=== PATIENT | female | born 1970 | race Caucasian/White ===

== ENCOUNTER 2019-12-01 08:13 | Outpatient (CLI) | payer OTHER, SELFPAY ==
--- NOTE | ~2019-12-01 | MM_ITS ---
EXAMINATION: MM screening rasta BI w ben HISTORY: Screening TECHNIQUE: Craniocaudal and mediolateral oblique 3-D tomosynthesis images were obtained and synthetic 2-D images were generated. CAD analysis was submitted and interpreted. COMPARISON: Comparison to multiple prior studies sequentially, with oldest reviewed study dated 09/2013. BREAST PARENCHYMAL COMPOSITION: There are scattered areas of fibroglandular density. FINDINGS: There is no evidence of suspicious mass, calcification, or architectural distortion to sugg est malignancy in either breast. There has been no suspicious interval change. IMPRESSION: 1. No mammographic evidence of malignancy. 2. Recommend routine screening mammography in one year. BI-RADS Category 1: Negative Reviewed, dictated and finalized at location A.
== END 2019-12-01 08:14 | disposition home or self-care (01) ==
LOC: ANHIMG 08:15
PROVIDERS: PCP Family Medicine; Visit Provider Family Medicine
DX: Z12.31 Encounter for screening mammogram for malignant neoplasm of breast (principal)
CPT/HCPCS: 77063; 77067

== ENCOUNTER 2020-10-07 09:17 | Outpatient (CLI) | payer OTHER, SELFPAY ==
--- NOTE | 2020-10-07 09:33 | EST_ITS ---
Patient Info Name: Alondra Harris Age: 50 years : 1970 Gender: Female Ht: 64 in Wt: 190 lbs BSA: 2.01 m2 Exam Date: 10/07/2020 10:13 AM Exam Location: [facility] Stress Patient Status: Outpatient Admit Date: 10/07/2020 Staff Ordering Physician: Mariella Dumont MD Attending Provider: GERARDO CAO DO Exercise Technologist: Tawnya Garcia RDCS Exercise Physician: Gerardo Cao DO Exam Type: CA stress test treadmill Study Info Indications I10 - Essential (primary) hypertension Z82.49 - Family history of ischemic heart disease and other diseases of the circulatory system A treadmill exercise stress test was performed. Summary 1. 1. Negative Azeem exercise stress test for ischemic ST changes by ECG criteria. 2. 2. Good functional capacity, achieving 10 METs of workload. 3. 3. Appropriate HR response to exercise. 4. 4. Appropriate HR recovery at 1 minute post exercise. 5. 5. No imaging with stress testing. 6. 6. Patient informed of the above results. Protocol: Azeem Stress ECG Details Stage: REST Duration (min): 1 min : 3 sec Speed (mph): 0.0 Grade (%): 0 HR (bpm): 83 SBP (mmHg): 129 DBP (mmHg): 80 METS: --- Stage: REST Duration (min): 7 min : 12 sec Speed (mph): 0.0 Grade (%): 0 HR (bpm): 82 SBP (mmHg): 129 DBP (mmHg): 80 METS: --- Stage: STAGE 1 Duration (min): 1 min : 0 sec Speed (mph): 1.7 Grade (%): 10 HR (bpm): 108 SBP (mmHg): 129 DBP (mmHg): 80 METS: --- Stage: STAGE 1 Duration (min): 2 min : 0 sec Speed (mph): 1.7 Grade (%): 10 HR (bpm): 116 SBP (mmHg): 129 DBP (mmHg): 80 METS: --- Stage: STAGE 1 Duration (min): 3 min : 0 sec Speed (mph): 1.7 Grade (%): 10 HR (bpm): 122 SBP (mmHg): 173 DBP (mmHg): 98 METS: --- Stage: STAGE 2 Duration (min): 1 min : 0 sec Speed (mph): 2.5 Grade (%): 12 HR (bpm): 127 SBP (mmHg): 173 DBP (mmHg): 98 METS: --- Stage: STAGE 2 Duration (min): 2 min : 0 sec Speed (mph): 2.5 Grade (%): 12 HR (bpm): 133 SBP (mmHg): 172 DBP (mmHg): 96 METS: --- Stage: STAGE 2 Duration (min): 3 min : 0 sec Speed (mph): 2.5 Grade (%): 12 HR (bpm): 133 SBP (mmHg): 172 DBP (mmHg): 96 METS: --- Stage: STAGE 3 Duration (min): 1 min : 0 sec Speed (mph): 3.4 Grade (%): 14 HR (bpm): 145 SBP (mmHg): 180 DBP (mmHg): 98 METS: --- Stage: STAGE 3 Duration (min): 2 min : 0 sec Speed (mph): 3.4 Grade (%): 14 HR (bpm): 154 SBP (mmHg): 180 DBP (mmHg): 98 METS: --- Stage: STAGE 3 Duration (min): 2 min : 0 sec Speed (mph): 3.4 Grade (%): 14 HR (bpm): 154 SBP (mmHg): 180 DBP (mmHg): 98 METS: --- Stage: RECOVERY Duration (min): 0 min : 59 sec Speed (mph): 0.0 Grade (%): 0 HR (bpm): 130 SBP (mmHg): 191 DBP (mmHg): 83 METS: ---
== END 2020-10-07 09:18 | disposition home or self-care (01) ==
LOC: ANHCARD 09:18
PROVIDERS: PCP Family Medicine; Visit Provider Family Medicine
DX: E66.9 Obesity, unspecified (principal); I10 Essential (primary) hypertension; N97.9 Female infertility, unspecified; R73.03 Prediabetes; Z82.49 Family history of ischemic heart disease and other diseases of the circulatory system
CPT/HCPCS: 93017

== ENCOUNTER 2021-01-15 10:20 | Outpatient (CLI) | payer OTHER, SELFPAY ==
--- NOTE | ~2021-01-15 | MM_ITS ---
EXAMINATION: MM screening rasta BI w ben HISTORY: Screening mammogram, family history of breast cancer in her mother. TECHNIQUE: Craniocaudal and mediolateral oblique 3-D tomosynthesis images were obtained and synthetic 2-D images were generated. CAD analysis was submitted and interpreted. COMPARISON: 12/01/2019, 11/15/2018, 09/20/2017 BREAST PARENCHYMAL COMPOSITION: There are scattered areas of fibroglandular density. FINDINGS: There is no evidence of suspicious mass, calcification, or architectural distortion to sugg est malignancy in either breast. There has been no suspicious interval change. IMPRESSION: 1. No mammographic evidence of malignancy. 2. Recommend routine screening mammography in one year. BI-RADS Category 1: Negative Reviewed, dictated and finalized at location A. UCT TRAINER
== END 2021-01-15 10:21 | disposition home or self-care (01) ==
LOC: ANHIMG 10:22
PROVIDERS: PCP Family Medicine; Visit Provider Family Medicine
DX: Z12.31 Encounter for screening mammogram for malignant neoplasm of breast (principal)
CPT/HCPCS: 77063; 77067

== ENCOUNTER 2021-10-30 13:58 | Outpatient (CLI) | payer OTHER, SELFPAY ==
--- NOTE | ~2021-10-30 | XR_ITS ---
EXAMINATION:XR cervical spine 4-5V DATE: 10/30/2021 14:20 INDICATION: Cervicalgia TECHNIQUE: AP, lateral, lateral swimmers and odontoid views of the cervical spine are provided. COMPARISON: None FINDINGS: There are 2 mm of retrolisthesis of C5 on C6. There is reversal of the normal cervical lord osis. The odontoid is intact. No fracture is identified. The vertebral body heights are maintained. T here is severe loss of intervertebral disc space height at C5-6 and C6-7. Degenerative osteophytes pr oject from the anterior endplates at these levels there is moderate facet and uncovertebral joint ost eoarthritis at C5-6 and C6-7. Prevertebral soft tissues are normal. IMPRESSION: 1. Severe cervical spondylosis at C5-6 and C6-7. Reviewed, dictated and finalized at location B.
--- NOTE | ~2021-10-30 | US_ITS ---
EXAMINATION: US soft tissue head and neck DATE: 10/30/2021 15:10 INDICATION: Localized swelling, mass or lump at the left lower neck/supraclavicular region. TECHNIQUE: Multiple grayscale and Doppler ultrasound images of the region of concern at the left lowe r neck/supraclavicular region were obtained. COMPARISON: None FINDINGS: There are couple normal-sized hypoechoic lymph nodes with central echogenic hilum at the region of co ncern. These measure 12 x 5 x 9 mm and 9 x 4 x 7 mm . No other abnormal masses or fluid collections i dentified. IMPRESSION: 1. A couple normal-sized subcutaneous lymph nodes at the region of concern. No other abnormal masses or fluid collections identified. Reviewed, dictated and finalized at location A.
== END 2021-10-30 13:59 | disposition home or self-care (01) ==
PROVIDERS: PCP Family Medicine; Visit Provider Physician Assistant
DX: M54.2 Cervicalgia (principal); M47.812 Spondylosis without myelopathy or radiculopathy, cervical region; M79.89 Other specified soft tissue disorders
CPT/HCPCS: 72050; 76536

== ENCOUNTER 2022-02-27 14:12 | Outpatient (CLI) | payer OTHER, SELFPAY ==
--- NOTE | ~2022-02-27 | MM_ITS ---
EXAMINATION: MM screening rasta BI w ben HISTORY: Screening mammogram, family history of breast cancer in her mother. TECHNIQUE: Craniocaudal and mediolateral oblique 3-D tomosynthesis images were obtained and synthetic 2-D images were generated. CAD analysis was submitted and interpreted. COMPARISON: 01/15/2021, 12/21/2019, 11/15/2018 BREAST PARENCHYMAL COMPOSITION: There are scattered areas of fibroglandular density. FINDINGS: No suspicious mass, calcification, or architectural distortion are identified in either larry ast to suggest malignancy. There has been no suspicious interval change. IMPRESSION: 1. No mammographic evidence of malignancy. 2. Recommend routine screening mammography in one year. BI-RADS Category 1: Negative Reviewed, dictated and finalized at location A. ENT SUCCESS ADVISOR
== END 2022-02-27 14:13 | disposition home or self-care (01) ==
LOC: ANHIMG 14:15
PROVIDERS: PCP Family Medicine; Visit Provider Family Medicine
DX: Z12.31 Encounter for screening mammogram for malignant neoplasm of breast (principal)
CPT/HCPCS: 77063; 77067

== ENCOUNTER 2022-03-02 09:06 | Outpatient (CLI) | payer OTHER, SELFPAY ==
[2022-03-02 09:52] LABS: Kit Draw Collected
== END 2022-03-02 09:07 | disposition home or self-care (01) ==
LOC: ANHGOSHLAB 09:08
PROVIDERS: PCP Family Medicine; Visit Provider Family Medicine
DX: Z00.00 Encounter for general adult medical examination without abnormal findings (principal); R73.03 Prediabetes; Z11.59 Encounter for screening for other viral diseases
CPT/HCPCS: 36415

== ENCOUNTER 2022-03-06 10:15 | Outpatient (CLI) | payer OTHER, SELFPAY ==
[2022-03-06 18:11] LABS: HIV 1/2 Ab P24 Ag Result Negative (Negative)
[2022-03-06 18:40] LABS: Hepatitis C Virus Antibody Negative (Negative)
[2022-03-06 18:43] LABS: Hepatitis B Surface Anti Res Indeterminate
== END 2022-03-06 10:16 | disposition home or self-care (01) ==
PROVIDERS: PCP Family Medicine; Visit Provider Physician Assistant
DX: Z12.4 Encounter for screening for malignant neoplasm of cervix (principal); Z91.89 Other specified personal risk factors, not elsewhere classified; Y99.0 Civilian activity done for income or pay
CPT/HCPCS: 36415; 86703; 86706; 86803; G0432

== ENCOUNTER 2022-04-13 14:56 | Outpatient (CLI) | payer OTHER, SELFPAY ==
[2022-04-13 19:30] LABS: Hepatitis B Surface Antigen Negative (Negative)
== END 2022-04-13 14:57 | disposition home or self-care (01) ==
LOC: ANHGOSHLAB 14:58
PROVIDERS: PCP Family Medicine; Visit Provider Physician Assistant
DX: T14.90XA Injury, unspecified, initial encounter (principal); Y99.0 Civilian activity done for income or pay
CPT/HCPCS: 36415; 87340

== ENCOUNTER 2022-08-13 14:07 | Outpatient (CLI) | payer OTHER, SELFPAY ==
[2022-08-13 19:36] LABS: Anion Gap 11 mmol/L (8-16); Blood Urea Nitrogen 19 mg/dL (7-17); Carbon Dioxide 27 mmol/L (22-30); Chloride 102 mmol/L (98-107); Estimated Glomerular Filt Rate > 60; Glucose 91 mg/dL (65-110); Potassium 3.7 mmol/L (3.4-5.0); Sodium 140 mmol/L (137-145)
== END 2022-08-13 14:08 | disposition home or self-care (01) ==
LOC: ANHGOSHLAB 14:09
PROVIDERS: PCP Family Medicine; Visit Provider Orthopaedic Surgery
DX: Z01.818 Encounter for other preprocedural examination (principal)
CPT/HCPCS: 36415; 80048

== ENCOUNTER 2022-08-13 15:05 | Outpatient (CLI) | payer OTHER, SELFPAY ==
--- NOTE | 2022-08-13 | ECG_ITS ---
Measurements Intervals [place] Rate: 90 P: 54 HI: 152 QRS: 45 QRSD: 90 T: 36 QT: 335 QTc: 410 Interpretive Statements SINUS RHYTHM POSSIBLE LEFT ATRIAL ENLARGEMENT [-0.1mV P WAVE IN V1/V2] COMPARED TO ECG 08/12/2018 10:37:12 NO SIGNIFICANT CHANGES Electronically Signed On 08-13-2022 16:07:29 CDT by Yarely Orosco M.D.
== END 2022-08-13 15:06 | disposition home or self-care (01) ==
LOC: ANHIMG 15:08 → ANHCARD 15:10
PROVIDERS: PCP Family Medicine; Visit Provider Orthopaedic Surgery
DX: Z01.818 Encounter for other preprocedural examination (principal)
CPT/HCPCS: 36415; 80048; 93005

== ENCOUNTER 2023-03-01 11:22 | Outpatient (CLI) | payer OTHER, SELFPAY ==
[2023-03-01 13:18] LABS: Alanine Aminotransferase 50 U/L (6-35); Albumin Level 4.5 g/dL (3.5-5.1); Alkaline Phosphatase 62 U/L (38-126); Anion Gap 7 mmol/L (8-16); Aspartate Amino Transferase 43 U/L (14-36); Basophils Absolute Auto 0.1 K/mm3 (0.0-0.1); Basophils Percent Auto 0.6 % (0.2-1.2); Bilirubin,Total 0.5 mg/dL (0.2-1.3); Blood Urea Nitrogen 17 mg/dL (7-17); Calcium 9.7 mg/dL (8.4-10.2); Carbon Dioxide 30 mmol/L (22-30); Chloride 102 mmol/L (98-107); Cholesterol 172 mg/dL (0-200); Eosinophils Absolute Auto 0.2 K/mm3 (0-0.3); Eosinophils Percent Auto 2.7 % (0-4.4); Estimated Glomerular Filt Rate > 60; Glucose 108 mg/dL (65-110); HDL Direct 46 mg/dL; Hematocrit 44.2 % (37.0-47.0); Hemoglobin 14.1 g/dL (12.0-15.0); Immature Granulocyte Absolute 0.06 K/mm3 (0.00-0.031); Immature Granulocyte Percent A 0.7 % (0-0.5); Lymphocytes Absolute Auto 2.31 K/mm3 (0.9-3.2); Lymphocytes Percent Auto 25.7 % (18.3-44.2); Mean Corpuscular HGB Conc 31.9 g/dl (32-36); Mean Corpuscular Hemoglobin 30.1 pg (26-34); Mean Corpuscular Volume 94.2 fl (80-100); Mean Platelet Volume 9.7 fl (7.4-10.4); Monocytes Absolute Auto 0.6 K/mm3 (0.1-0.6); Neutrophils Absolute Auto 5.7 K/mm3 (1.3-6.7); Neutrophils Percent Auto 63.3 % (45.5-73.1); Platelet Count Result 323 k/mm3 (150-375); Potassium 3.8 mmol/L (3.4-5.0); Red Blood Count 4.69 M/mm3 (4.2-5.4); Red Cell Distribution Width 12.8 % (11.5-14.5); Sodium 139 mmol/L (137-145); Triglycerides 200 mg/dL (<150)
[2023-03-01 13:29] LABS: LDL Cholesterol Direct 89 mg/dL
[2023-03-01 22:09] LABS: Hemoglobin A1C 6.2 % (<5.7)
== END 2023-03-01 11:23 | disposition home or self-care (01) ==
LOC: ANHGOSHLAB 11:24
PROVIDERS: PCP Family Medicine; Visit Provider Physician Assistant
DX: E66.9 Obesity, unspecified (principal); E78.2 Mixed hyperlipidemia; I10 Essential (primary) hypertension; K76.0 Fatty (change of) liver, not elsewhere classified; R73.03 Prediabetes
CPT/HCPCS: 36415; 80053; 80061; 83036; 84443; 85025

== ENCOUNTER 2023-03-11 13:20 | Outpatient (CLI) | payer OTHER, SELFPAY ==
--- NOTE | ~2023-03-11 | MM_ITS ---
EXAMINATION: MM screening rasta BI w ben HISTORY: Screening TECHNIQUE: Craniocaudal and mediolateral oblique 3-D tomosynthesis images were obtained and synthetic 2-D images were generated. CAD analysis was submitted and interpreted. COMPARISON: Comparison to multiple prior studies sequentially, with oldest reviewed study dated 09/15. BREAST PARENCHYMAL COMPOSITION: There are scattered areas of fibroglandular density. FINDINGS: There is no evidence of suspicious mass, calcification, or architectural distortion to sugg est malignancy in either breast. There has been no suspicious interval change. IMPRESSION: 1. No mammographic evidence of malignancy. 2. Recommend routine screening mammography in one year. BI-RADS Category 1: Negative Reviewed, dictated and finalized at location A. K LAYER
== END 2023-03-11 13:21 | disposition home or self-care (01) ==
LOC: CHSIMG 13:21
PROVIDERS: PCP Family Medicine; Visit Provider Family Medicine
DX: Z12.31 Encounter for screening mammogram for malignant neoplasm of breast (principal)
CPT/HCPCS: 77063; 77067

== ENCOUNTER 2023-07-05 08:25 | Outpatient (CLI) | payer OTHER, SELFPAY ==
[2023-07-05 14:08] LABS: Basophils Absolute Auto 0.1 K/mm3 (0.0-0.1); Basophils Percent Auto 0.8 % (0.2-1.2); Eosinophils Absolute Auto 0.3 K/mm3 (0-0.3); Eosinophils Percent Auto 4.2 % (0-4.4); Hematocrit 43.6 % (37.0-47.0); Hemoglobin 14.1 g/dL (12.0-15.0); Immature Granulocyte Absolute 0.02 K/mm3 (0.00-0.031); Immature Granulocyte Percent A 0.3 % (0-0.5); Lymphocytes Percent Auto 32.1 % (18.3-44.2); Mean Corpuscular HGB Conc 32.3 g/dl (32-36); Mean Corpuscular Hemoglobin 31.1 pg (26-34); Mean Platelet Volume 10.3 fl (7.4-10.4); Monocytes Absolute Auto 0.5 K/mm3 (0.1-0.6); Monocytes Percent Auto 7.1 % (2.6-8.5); Neutrophils Percent Auto 55.5 % (45.5-73.1); Platelet Count Result 296 k/mm3 (150-375); Red Blood Count 4.54 M/mm3 (4.2-5.4); Red Cell Distribution Width 12.7 % (11.5-14.5); White Blood Count 7.2 K/mm3 (4.5-10.0)
[2023-07-05 14:47] LABS: Alanine Aminotransferase 33 U/L (6-35); Albumin Level 4.6 g/dL (3.5-5.1); Alkaline Phosphatase 47 U/L (38-126); Anion Gap 8 mmol/L (4-12); Aspartate Amino Transferase 39 U/L (14-36); Bilirubin,Total 0.7 mg/dL (0.2-1.3); Blood Urea Nitrogen 17 mg/dL (7-17); Calcium 9.6 mg/dL (8.4-10.2); Carbon Dioxide 27 mmol/L (22-30); Chloride 100 mmol/L (98-107); Cholesterol 143 mg/dL (0-200); Estimated Glomerular Filt Rate > 60; Glucose 102 mg/dL (65-110); HDL Direct 47 mg/dL; Potassium 3.6 mmol/L (3.4-5.0); Sodium 135 mmol/L (137-145); Triglycerides 207 mg/dL (<150)
[2023-07-05 14:48] LABS: LDL Cholesterol Direct 73 mg/dL
[2023-07-05 14:55] LABS: Hemoglobin A1C 5.6 % (<5.7)
[2023-07-05 15:03] LABS: Thyroid Stimulating Hormone 0.998 uIU/mL (0.465-4.680)
== END 2023-07-05 08:26 | disposition home or self-care (01) ==
LOC: ANHGOSHLAB 08:27
PROVIDERS: PCP Family Medicine; Visit Provider Nurse Practitioner Family
DX: R73.03 Prediabetes (principal); E78.2 Mixed hyperlipidemia; I10 Essential (primary) hypertension; R73.01 Impaired fasting glucose
CPT/HCPCS: 36415; 80053; 80061; 83036; 84443; 85025

== ENCOUNTER 2024-03-30 13:01 | Outpatient (CLI) | payer OTHER, SELFPAY ==
--- NOTE | ~2024-03-30 | MM_ITS ---
EXAMINATION: MM screening rasta BI w ben HISTORY: Screening TECHNIQUE: Craniocaudal and mediolateral oblique 3-D tomosynthesis images were obtained and synthetic 2-D images were generated. CAD analysis was submitted and interpreted. COMPARISON: Comparison to multiple prior studies sequentially, with oldest reviewed study dated 09/20. BREAST PARENCHYMAL COMPOSITION: Not dense: There are scattered areas of fibroglandular density. FINDINGS: There is no evidence of suspicious mass, calcification, or architectural distortion to sugg est malignancy in either breast. There has been no suspicious interval change. IMPRESSION: 1. No mammographic evidence of malignancy. 2. Recommend routine screening mammography in one year. BI-RADS Category 1: Negative Reviewed, dictated and finalized at location B. [employer]
--- OUTSIDE RECORDS SUMMARY | 2024-03-30 13:09 | XMS_ITS | Continuity of Care Document ---
Author Organization [facility] Address [address] [place] [address] [address] [place] [address] Phone Care Team Providers Care Cone Examiner Name Role Phone Dioni Singer MD Unavailable Unavailable Allergies, Adverse Reactions, Alerts Substance Reaction Status Criticality No Known Allergies Active No Inform ation Medications Medication Instructions Dosage Effective Dates (start - stop) Status Comments Polytrim 10,000 unit-1 mg/mL eye drops instill 1 drop by ophthalmic route 3 times every day into right eye 1 drop - Active atorvastatin 20 mg tablet take 1 tablet by oral route every day 20 MG - Active lisinopril 20 mg tablet take 1 tablet by oral route every day 20 MG - Active Procedures Procedure Date Office/outpatient Visit, [facility] Advance Directives Directive Yes / No Effective Date File Name No Information Encounters Encounter Description Practice Location Reason(s) For Visit Diagnoses Date Provider Providers Copied on Encounter Office/outpat ient Visit, [facility], [address] [place] [address] [address], [place], [place], [id number], tel:[phone] [address] [place] Professional WIE (chief complaint) Abrasion of right cornea, initial encounter Enmanuel Wheatley. [address] [facility] [address], [place], [place], [id number], [place]. tel:[phone] Referring Provider: Mariella Dumont MD, [address] [place] [address], [address]. tel:[phone] Family History Family Member Type Diagnosis Age At Onset No Information Payers Payer name Insurance type Covered constitution party ID Doretha Degroot (s) Case [id number] [employer] CI [id number] Social History Type Description Quantity Date Captured Comments Alcohol Use Details Caffeine Use Details Tobacco Use Status Current non-smoker Smoking Status Never smoker Non-Smoking Tobacco Use Details : No Details Available : No Details Available Sex Female Chief Complaint And Reason For Visit From encounter dated '04/29/2020 14:45'. WIE (chief complaint). Description: The 50 year old female presents for evaluation of WIE in the right eye. 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 Patient states the eye is extremely painful, sensitive to light, and tearing. Tech put a gtt of Alcaine in her right eye. Reason For Referral Reason For Referral No Information Plan Of Treatment Date Type Action Status Patient Education Corneal Scratches: Care Instructions completed History Of Present Illness Encounter Date Complaint History Of Prese nt Illness WIE The 50 year old female presents for evaluation of WIE in the right eye. 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 Patient states the eye is extremely painful, sensitive to light, and tearing. Tech put a gtt of Alcaine in her right eye. Functional Status Date Functional Assessmen t No Information Instructions Date Instruction Additional Infor mation Impression/Plan Assessments Type Assessment Date assessment Abrasion of right cornea, initia l encounter Patient Care Teams Name Effective Dates (start - stop) Status Members No Information
== END 2024-03-30 13:02 | disposition home or self-care (01) ==
LOC: CHSIMG 13:03
PROVIDERS: PCP Family Medicine; Visit Provider Family Medicine
DX: Z12.31 Encounter for screening mammogram for malignant neoplasm of breast (principal)
CPT/HCPCS: 77063; 77067

== ENCOUNTER 2024-09-14 10:17 | Outpatient (CLI) | payer OTHER, SELFPAY ==
--- OUTSIDE RECORDS SUMMARY | 2024-09-14 10:23 | XMS_ITS | Continuity of Care Document ---
Author Organization [facility] Address [address] [place] [address] [address] [place] [address] Phone Care Team Providers Care Paper Sealer Name Role Phone Dioni Singer MD Unavailable Unavailable Allergies, Adverse Reactions, Alerts Substance Reaction Status Criticality No Known Allergies Active No Inform ation Medications Medication Instructions Dosage Effective Dates (start - stop) Status Comments Polytrim 10,000 unit-1 mg/mL eye drops instill 1 drop by ophthalmic route 3 times every day into right eye 1 drop - Active lisinopril 20 mg tablet take 1 tablet by oral route every day 20 MG - Active atorvastatin 20 mg tablet take 1 tablet by oral route every day 20 MG - Active Procedures Procedure Date Office/outpatient Visit, [facility] Advance Directives Directive Yes / No Effective Date File Name No Information Encounters Encounter Description Practice Location Reason(s) For Visit Diagnoses Date Provider Providers Copied on Encounter Office/outpat ient Visit, [facility], [address] [place] [address] [address], [place], [place], [id number], tel:[phone] [address] [place] Professional WIE (chief complaint) Abrasion of right cornea, initial encounter Enmanuel Wheatley. [address] [facility] [address], [place], [place], [id number], [place]. tel:[phone] Referring Provider: Mariella Dumont MD, [address] [place] [address], [address]. tel:[phone] Family History Family Member Type Diagnosis Age At Onset No Information Payers Payer name Insurance type Covered republican ID Doretha Degroot (s) Case [id number] [employer] CI [id number] Social History Type Description Quantity Date Captured [...]
--- OUTSIDE RECORDS SUMMARY | 2024-09-14 10:23 | XMS_ITS | Data Portability ---
Author Organization [place] [facility], Main Office Address [address] [place] [address] Care Team Providers Care Supervisor Die Casting Name Role Phone VICENTA HUMPHREYS Primary Care Provider VICENTA HUMPHREYS Referring Provider [phone] Assessment Encounter Date Assessment Date Assessment LastModified by Organization Details LastModified Time 04/20/2022 04/20/2022 Patient has a trigger thumb Right. she has had conservative treatment and would like to have surgical release. I discussed risks, benefits, limitations and alternatives in detail. Will proceed per her request. [email or web address] Not available 08/13/2022 17:52:52 08/31/2022 08/31/2022 Patient returns status post trigger thumb release right. The catching is gone neurologically she is intact she is doing well. I think she can be released to activity slowly if she has any changes or problems she is instructed to call discussed. [email or web address] Not available 08/31/2022 11:02:12 11/02/2022 11/02/2022 Patient presents after a fall in her left shoulder. She strained her left shoulder and since that time has had pain. The pain persists and is worse with activity. Her exam for the most part is unremarkable she does have some give-way in abduction external rotation but only mild impingement. She does seem to be getting better. Based on what I see I think she strained her shoulder and this should resolve with time. I will see her back in a month if she is not better discussed pramod Not available 11/02/2022 10:01:04 12/03/2022 12/03/2022 The patient has continuing signs and symptoms of a rotator cuff strain with residual rotator cuff tendinitis. She could have a partial tear we talked about treatment options today in detail we talked about physical therapy MRI scan cortisone injection and oral anti-inflammatory medication she wanted to proceed with prednisone and an injection therefore under sterile conditions I injected the patient's left shoulder subacromial space in the office with 4 cc 0.5% ropivacaine and 20 mg of Kenalog. Patient tolerated the procedure well. I will see her back in a month if her symptoms continue to be persistent and significant we will get an MRI scan she agreed she voiced understanding agrees above plan she declined formal therapy today. She will call for any further problems difficulties or questions. [email or web address] Not available 12/03/2022 14:11:35 Plan of Treatment Reminders Order Date Submit Date Provider Last Modified By Organization Details Last Modified Time Details Appointments None recorded. Lab None recorded. Referral None recorded. Procedures injection/a spiration joint/bursa (PROC) - in office procedure, administere d by provider 2022 [email or web address] In-Office Order, Internal Use Only DO Not Attach Compendium DO Not Attach Compendium, Do Not Delete/merge, [id number] 13:47:24 Surgeries None recorded. Imaging XR, shoulder 2022 [email or web address] [facility] [place], [address], [place], [address], 10:07:40 Medication Orders Kenalog 10 mg/mL suspension for injection 2022 [email or web address] [id number], [address], [place], [phone], 14:29:02 ropivacaine (PF) 5 mg/mL (0.5 %) injection solution 2022 [email or web address] [facility], [address], [place], [phone], 14:29:02 prednisone 10 mg tablets in a dose pack 2022 023 [email or web address] [facility] #[id number], [address] [place], [place], [phone], 14:29:02 Patient TargetsNo targets recorded. Patient InstructionsNo instructions recorded. Reason for Referral None Reported. Results Created Date Observation Date Name Description Value Unit Range Abnormal Flag Note LastModifiedBy Organization Detail LastModifiedTime 04/20/19 XR, hand No observ ation record ed. [id number] [facility] [place] [address], [place], [address], 04/22/2022 14:13:23 08/15/19 elect khoi germangr am No observ ation record ed. [email or web address] In-Office Order Internal Use Only DO Not Attach Compendium DO Not Attach Compendium, Do Not Delete/merge, [id number] 08/17/2022 16:02:42 11/03/19 XR, shoul lakisha No observ ation record ed. [email or web address] [facility] [place] [address], [place], [address], 11/02/2022 09:59:35 Result Notes None recorded. Problems Name Problem SNOMED Code Status Onset Date Resolution Date Notes Provider Name and Address Organization Details Recorded Time Radiother apy follow-up 843988739 Active Not Available [facility] 3 14:11:19 Localized , primary osteoarth ritis 629463002 Active Not Available [facility] 3 14:11:19 Partial thickness rotator cuff tear 693051484 Active Not Available [facility] 3 14:11:19 History of transient ischemic attack 584016012 Active 2018 pt have stroke in the past, the year is unknown Not Available [facility] 3 14:11:19 Full thickness rotator cuff tear 014520332 Active 2018 Not Available [facility] 3 14:11:20 Pain in right hand 185102703915 109 Active 2022 Not Available [facility] 3 14:11:20 Acquired trigger finger of right middle finger 106091650053 105 Active 2022 Not Available [facility] 3 14:11:20 Trigger thumb of right hand 260455640200 105 Active 2022 Deb Cruz null, [facility] 3 15:13:56 Pain of left shoulder joint 031425470161 50460 Active 2022 Merle Pérez EMORY null, [facility] 3 09:30:30 Tendiniti s of left rotator cuff 082161678860 93170 Active 2022 GEETA Avery [address] [place] [address], [facility] [address], [place], [address] , [facility] 3 14:11:49 Problem Notes None recorded. Procedures Surgical History Date Name Laterality Status Provider Name and Address Organization Details Recorded Time Rotator cuff surgery completed Not Available [facility] 04/22/2022 14:10:28 Imaging Results None recorded. Procedure Notes None recorded. Medical Equipment None Reported. Medications Name Sig Start Date Stop Date Status Note LastModified by Organization Details LastModified Time prednisone 10 mg tablet active Not Available Not Available No t Available atorvastatin 20 mg tablet TAKE 1 TABLET BY MOUTH AT BEDTIME active Not Available Not Available No t Available valacyclovir 1 gram tablet TAKE 2 TABLETS BY MOUTH EVERY 12 HOURS active Not Available Not Available No t Available hydrocodone 5 mg-acetaminop hen 325 mg tablet TAKE 1 TABLET BY MOUTH EVERY 6 HOURS active Not Available Not Available No t Available lisinopril 20 mg tablet TAKE 1 TABLET BY MOUTH DAILY active Not Available Not Available No t Available tramadol 50 mg tablet active Not Available Not Available No t Available prednisone 10 mg tablets in a dose pack Take 1 tab by mouth, 3 times a day for 3 daysTake 1 tab by mouth 2 times a day for 2 daysTake 1 tab by mouth once a day for 1 day 2022 active Not Available Not Available Not Avai lable Kenalog 10 mg/mL suspension for injection Take 2 mL by injection route. 2022 active ND: 0003- 0494- 20 Not Available Not Available Not Available hydrocodone 7.5 mg-acetaminop hen 325 mg tablet active Not Available Not Available Not Available lisinopril 10 mg tablet active Not Available Not Available No t Available hydrochloroth iazide 25 mg tablet TAKE 1 TABLET BY MOUTH DAILY active Not Available Not Available No t Available lisinopril 40 mg tablet TAKE 1 TABLET BY MOUTH DAILY active Not Available Not Available No t Available ropivacaine (PF) 5 mg/mL (0.5 %) injection solution Take 4 mL by injection route. 2022 active [facility] [address] -[address]- 01 Not Available Not Available Not Available Vitals Date Recorded Body mass index (BMI) Body height Body weight Provider Name and Address Organization Details Last Updated DateTime 04/20/2022 33.5 kg/m2 162.56 cm 78805.51 g Not Available [facility] 04/22/2022 14:10:38 Date Recorded Body height Body mass index (BMI) Body weight Provider Name and Address Organization Details Last Updated DateTime 08/31/2022 162.56 cm 32.6 kg/m2 67604.55 g RAUQEL Ferreira [facility] [employer] 08/31/2022 10:16:02 Date Recorded Body height Body mass index (BMI) Body weight Provider Name and Address Organization Details Last Updated DateTime 11/02/2022 162.56 cm 34 kg/m2 29046.29 g Merle Pérez CNA [facility] [employer] 11/02/2022 09:30:00 Date Recorded Body height Body mass index (BMI) Body weight Provider Name and Address Organization Details Last Updated DateTime 12/03/2022 162.56 cm 33.5 kg/m2 10330.51 g Erika Tellez ATC L [facility] [employer] 12/03/2022 13:45:31 Social History None recorded. Functional Status Question Answer Note LastModified by Organizat ion Details LastModified Time What is your level of alcohol consumption? None [id number] Information not available 04/22/2022 Mental Status None recorded. Family History Relationship Description Onset Age of this Age Resolved Age Notes LastModified by Organization Details LastModified Time Father Heart disease [id number] [id number] Not available 04/22/2022 14:10:28 Father Hypertensive disorder [id number] Not available 04/22/2022 14:10:28 Mother Family history of malignant neoplasm [id number] Not available 04/22/2022 14:10:28 Mother Hypertensive disorder [id number] Not available 04/22/2022 14:10:29 Medical History No medical history recorded. Gynecological HistoryNo gynecological history recorded. Obstetrics History GPAL:G 0 P 0 0 0 0 Past Encounters Encounter ID Performer Location Encounter Start Date Encounter Closed Date Diagnosis/Indication Diagnosis SNOMED-CT Code Diagnosis ICD10 Code Diagnosis Note [id number] Silas Ambriz MD [facility] [place] [address] [place] [address] 04/20/2022 00:00:00 08/13/2022 17:54:23 [id number] Silas Ambriz MD [facility] [place] [address] [place] [address] 08/31/2022 10:08:45 08/31/2022 11:10:27 Acquired trigger finger of right middle finger 4195867637 77014 M65.875 [id number] Silas Ambriz MD [facility] [place] [address] [place] [address] 11/02/2022 09:25:24 11/02/2022 10:07:39 Pain of left shoulder joint 6499676517 1576640 M25.929 [id number] Nabil Asif MD [facility] [place] [address] [place] [address] 12/03/2022 13:42:06 12/03/2022 14:02:37 Pain of left shoulder joint 1258330098 1300520 M25.512 Tendinitis of left rotator cuff 9444472208 0677591 M67.814 Health Concerns Section Related Observation LastModified by Organization Detai ls LastModified Time None Recorded Concern Status LastModified by Organization Details LastModified Time None Recorded Advance Directives Directive None Recorded Payers Insurance Date Sequence Insurance Name Policy Number Policy Jerez Covered Member ID Jerez Member ID Guarantor Name 12/03/2022 1 [employer] [id number] Ke Harris [id number] Alondra Harris Notes Date Note Type Note Provider Name and Address Organization Details Recorded Time 04/20/2022 text/html Patient presents triggering right thumb. She got actual locking and catching particularly she thinks that that be at the IP joint but mostly it is the pain is mostly localized to the A1 atif. Silas Ambriz MD [address], [place], [address], [employer] 08/13/2022 17:54:23 08/31/2022 text/html Patient returns status post trigger finger release right thumb. The catching is gone she is not really having any pain she feels quite good at this point. Silas Ambriz MD [address], [place], [address], [employer] 08/31/2022 11:02:30 11/02/2022 text/html Patient presents shoulder pain left. She fell on her left shoulder and damaged. Her right shoulder is doing well. And she is quite happy with the procedure performed there. Silas Ambriz MD [address], [place], [address], [employer] 11/02/2022 10:01:22 12/03/2022 text/html patient returns for recheck of the left shoulder. She had fallen a couple of months ago try to catch herself and strained her left rotator cuff. She has had aching pain since that time she declined formal therapy cortisone or prescription oral anti-inflammatories on her last visit with Dr. Ambriz. She wanted to give it time. Her strength appeared to be good she was just having pain due to the strain of the shoulder. She states however her pain continues it has gotten slightly better but still interferes with her daily activities. If she tries to do anything heavy repetitive reach out to her side or up overhead this causes significant discomfort that radiates little bit up into the upper arm. She denies any loss of motion no weakness but cannot do anything heavy because of the discomfort. She comes in today to talk about further treatment options for her left shoulder problem. She has had previous surgical intervention on the right shoulder for rotator cuff years ago and is trying to avoid any type of more aggressive treatment for her left shoulder. It does not appear that she has a tear on the left at this time but may have a partial tear and significant tendinitis. Previous x-rays reviewed today in detail today with the patient she does have some hypertrophic calcification noted off the inferior lip of the glenoid due to some primary osteoarthritis or old possible labral/ capsular injury. GEETA Avery [address], [facility] [address], [place], [address], [place] [facility] 12/03/2022 14:12:18 OBGyn Episode No OBEpisode recorded.
[2024-09-14 13:06] LABS: Hematocrit 40.2 % (37.0-47.0); Hemoglobin 13.4 g/dL (12.0-15.0); Immature Granulocyte Percent A 0.4 % (0-0.5); Lymphocytes Absolute Auto 2.02 K/mm3 (0.9-3.2); Mean Corpuscular HGB Conc 33.3 g/dl (32-36); Mean Corpuscular Hemoglobin 30.9 pg (26-34); Mean Corpuscular Volume 92.6 fl (80-100); Nucleated Red Blood Cells Absolute Auto 0.000 K/mm3 (0.0-0.012); Nucleated Red Blood Cells Perc 0.0 % (0.0-0.2); Platelet Count Result 270 k/mm3 (150-375); Red Blood Count 4.34 M/mm3 (4.2-5.4); White Blood Count 5.3 K/mm3 (4.5-10.0)
[2024-09-14 13:21] LABS: Alanine Aminotransferase 32 U/L (6-35); Albumin Level 4.5 g/dL (3.5-5.1); Alkaline Phosphatase 54 U/L (38-126); Anion Gap 9 mmol/L (4-12); Aspartate Amino Transferase 39 U/L (14-36); Bilirubin,Total 0.5 mg/dL (0.2-1.3); Blood Urea Nitrogen 23 mg/dL (7-17); Calcium 10.1 mg/dL (8.4-10.2); Carbon Dioxide 25 mmol/L (22-30); Chloride 100 mmol/L (98-107); Cholesterol 163 mg/dL (0-200); Estimated Glomerular Filt Rate > 60; Glucose 107 mg/dL (65-110); HDL Direct 46 mg/dL; Potassium 4.2 mmol/L (3.4-5.0); Sodium 134 mmol/L (137-145); Total Protein 7.3 g/dL (6.3-8.2); Triglycerides 147 mg/dL (<150)
[2024-09-14 13:56] LABS: Hemoglobin A1C 6.0 % (<5.7)
[2024-09-14 14:14] LABS: Vitamin B12 664.0 pg/mL (239-931)
== END 2024-09-14 10:18 | disposition home or self-care (01) ==
LOC: ANHGOSHLAB 10:18
PROVIDERS: PCP Family Medicine; Visit Provider Family Medicine
DX: R73.03 Prediabetes (principal); K76.0 Fatty (change of) liver, not elsewhere classified
CPT/HCPCS: 36415; 80053; 80061; 82607; 83036; 85025